=== PATIENT | female | born 1985 | race Caucasian/White ===

== ENCOUNTER → 2018-01-12 | Outpatient (CLI) | payer OTHER ==
--- NOTE | 2018-01-12 10:20 | MM ---
Reason for exam: clinical finding. Last mammogram was performed 8 years and 2 months ago. History: Took hormonal contraceptives beginning at age 21. Physical Findings: A clinical breast exam by your physician is recommended on an annual basis and results should be correlated with mammographic findings. MG Diagnostic Mammo w CAD ESHA Bilateral CC and MLO view(s) were taken. Spot compression CC view(s) were taken of the right breast. LM and spot compression MLO view(s) were taken of the left breast. Prior study comparison: November 11, 2009, mammogram, performed at [facility]. The breast tissue is heterogeneously dense. This may lower the sensitivity of mammography. Nodule upper outer quadrant left breast 7cm from nipple. Ultrasound is recommended. These results were verbally communicated with the patient and result sheet given to the patient on 01/12/18. ASSESSMENT: Incomplete: need additional imaging evaluation, BI-RAD 0 RECOMMENDATION: Ultrasound of the left breast.
--- NOTE | 2018-01-12 10:27 | USB ---
Reason for exam: additional evaluation requested from abnormal screening. History: Took hormonal contraceptives beginning at age 21. US Breast Limited LT Left breast ultrasound demonstrates no cystic or solid lesion seen. Given mammographic appearance, stereotactic core biopsy is recommended. These results were verbally communicated with the patient and result sheet given to the patient on 01/12/18. ASSESSMENT: Suspicious, BI-RAD 4 RECOMMENDATION: Stereotactic core biopsy of the left breast. Called Dr. Salinas with mammographic findings and has scheduled an appointment for the patient for 01/21/18 at 11:[address] Ortega. PRELIMINARY REPORT CALLED AND FAXED TO DR. ORTEGA ON 01/12/18.
== END | disposition home or self-care (01) ==
LOC: RADMAMWWP 08:39
PROVIDERS: ATTEND Obstetrics & Gynecology
DX: N63.0 Unspecified lump in unspecified breast (principal); R92.8 Other abnormal and inconclusive findings on diagnostic imaging of breast
CPT/HCPCS: 77066

== ENCOUNTER → 2018-02-04 | Day surgery (SDC) | payer OTHER ==
[2018-02-04 07:49] VITALS: BP 117/81; PULSE 85; RESP 16; TEMP 98.5; BMI 18.8
--- NOTE | 2018-02-04 10:32 | USB ---
Reason for exam: additional evaluation requested from prior study. History: Took hormonal contraceptives beginning at age 21. US Breast Limited LT Left breast ultrasound demonstrates no cystic or solid lesion seen. These results were verbally communicated with the patient and result sheet given to the patient on 02/04/18. ASSESSMENT: Negative, BI-RAD 1 RECOMMENDATION: Surgical consultation of the left breast. Dr. Ortega's office to call patient to schedule needle localization.
--- NOTE | 2018-02-04 15:56 | MM ---
EXAMINATION TYPE: MG discontinued stereo core LT DATE OF EXAM: 02/04/2018 COMPARISON: Prior diagnostic mammogram 01/12/2018 CLINICAL HISTORY: Abnormal mammogram TECHNIQUE: Stereotactic guided core biopsy of left breast, discontinued. FINDINGS: The patient was placed in the stereotactic breast biopsy table. Lesion could not be localiz ed. Attempts will be made to repeat ultrasound to localize lesion. Lesion is felt likely to be probab ly benign. IMPRESSION: Probably benign, BI-RADS 3, follow-up mammogram in 3-6 months to assess for stability. Alternatively surgical consult and wire localization and excision could be attempted. Case discussed with referring clinician.
== END ==
LOC: RADMAMWWP 07:37
PROVIDERS: ATTEND Surgery
DX: R92.8 Other abnormal and inconclusive findings on diagnostic imaging of breast (principal); Z53.8 Procedure and treatment not carried out for other reasons

== ENCOUNTER 2018-02-15 08:25 | Day surgery (SDC) | payer OTHER ==
[2018-02-09 12:24] VITALS: BMI 18.5
[~2018-02-15 08:25] MED LIST: DEXAMETHASONE SOD PHOSPHATE 10 MG/ML 1 ML VIAL IV ONE; HEPARIN SODIUM,PORCINE 5,000 UNIT/ML 1 ML VIAL SQ ONE; MIDAZOLAM 2 MG/2 ML VIAL IV PRN; ONDANSETRON 4 MG/2 ML VIAL IVP ONE; Pre Op ABX Message 1 EACH MISC MISCELLANE ONE; SCOPOLAMINE 1.5MG/72HR PATCH TRANSDERM ONE; fentaNYL (PF) 50 MCG/ML 2 ML AMP IV PRN
[2018-02-15] MEDS ORDERED: ALPRAZolam 0.5 MG TAB PO ONE (09:00)
[2018-02-15] MEDS: LACTATED RINGERS 1,000 ML IV SCH ×2 (09:02→11:55)
[2018-02-15] MEDS ORDERED: SODIUM BICARB 4% 5 ML VIAL (0.48 MEQ/ML) MISCELLANE ONE (10:07)
[2018-02-15] MEDS ORDERED: LIDOCAINE 1% INJ 10MG/ML (20 ML MDV) SQ ONE (10:07)
[2018-02-15] MEDS ORDERED: HEPARIN SODIUM,PORCINE 5,000 UNIT/ML 1 ML VIAL SQ ONE (11:38)
[2018-02-15] MEDS ORDERED: KETOROLAC 30 MG/ML 1 ML VIAL ONE (11:58)
[2018-02-15] MEDS ORDERED: fentaNYL (PF) 50 MCG/ML 2 ML AMP ONE (11:58)
[2018-02-15] MEDS ORDERED: MIDAZOLAM 2 MG/2 ML VIAL ONE (11:58)
[2018-02-15] MEDS ORDERED: LIDOCAINE 1% INJ 10MG/ML (20 ML MDV) ONE (11:58)
[2018-02-15] MEDS ORDERED: ALBUTEROL INHALER 60 PUFF/8 GM INHALER INHALATION ONE (11:58)
[2018-02-15] MEDS ORDERED: GLYCOPYRROLATE 0.2 MG/ML 2 ML VIAL ONE (11:58)
[2018-02-15] MEDS ORDERED: SUCCINYLCHOLINE CHLORIDE 100 MG/5 ML SYR IV ONE (11:58)
[2018-02-15] MEDS ORDERED: PROPOFOL 10 MG/ML 20 ML VIAL IV ONE (11:58)
--- NOTE | 2018-02-15 13:20 | P.OP ---
Date of Procedure: 02/15/18 Preoperative Diagnosis: Mammographic abnormality left breast, attempted stereotactic biopsy unsuccessful recommended for needle localization and excision Postoperative Diagnosis: Same Procedure(s) Performed: needle Localization excisional biopsy area of concern in left breast Anesthesia: CAMILLE Surgeon: Angelica Ortega Estimated Blood Loss (ml): 20 IV fluids (ml): 600 Pathology: other (Breast tissue) Condition: stable Disposition: PACU Indications for Procedure: Attempted stereotactic biopsy of area of concern in left breast unsuccessful, after review with radiology recommended needle localization and excisional biopsy Operative Findings: Area of nodularity/cystic change on chest wall Description of Procedure: Patient is a 32-year-old white female who had a abnormality noted on her mammogram and her left breast. Ultrasound did not reveal any lesions which could be biopsied. Attempted stereotactic biopsy was performed. This was unsuccessful and it was recommended after discussion with the patient that she undergo needle localization and excisional biopsy. The area of concern was localized by needle localization. The patient was brought to the operating room and following induction of anesthesia the left breast was prepped and draped in a sterile fashion. Circumareolar incision was made and carried down to the area of abnormality. Wide excision was performed. The specimen was painted for orientation and radiograph of the specimen revealed area of concern had been removed. Following this after we were assured that hemostasis was attained several deep 3-0 Vicryl sutures were placed. This was followed by closure of the skin with 4-0 Monocryl and a nylon suture superficial to this. The patient tolerated the procedure in stable condition. All instrument and sponge counts were correct at the end of the case.
--- NOTE | 2018-02-15 13:21 | P.DS ---
Providers Attending physician: Angelica Ortega Primary care physician: Stated None Plan - Discharge Summary New Discharge Prescriptions: No Action Albuterol Sulfate [Ventolin HFA] 1 - 2 puff INHALATION Q6H PRN #1 inhaler PRN Reason: Shortness Of Breath Ibuprofen [Motrin] 400 mg PO Q6HR PRN PRN Reason: Pain Discharge Medication List Albuterol Sulfate [Ventolin HFA] 1 - 2 puff INHALATION Q6H PRN #1 inhaler [Rx] Ibuprofen [Motrin] 400 mg PO Q6HR PRN 01/21/18 [History] Follow up Appointment(s)/Referral(s): Angelica Ortega MD [STAFF PHYSICIAN] - 1 Week Activity/Diet/Wound Care/Special Instructions: Do not drive today Were bra until seen by Dr. Fernandez Patient may shower after 48 hours Discharge Disposition: HOME SELF-CARE
[2018-02-15 13:34] VITALS: TEMP 96.8
--- NOTE | 2018-02-15 13:56 | MM ---
EXAMINATION TYPE: MG surgical specimen LT, MG pre op needle loc LT DATE OF EXAM: 02/15/2018 COMPARISON: NONE CLINICAL HISTORY: Left breast mammographic mass without sonographic correlate. Discontinued stereotactic biopsy due to nonvisualization TECHNIQUE: Needle localization with wire placement and surgical excision of area of concern in the left breast. FINDINGS: The procedure of needle localization with wire placement and than surgical excision was explained to the patient. Benefits, alternatives, and risks were discussed. An informed consent was then obtained. The shortest pathway for procedure was chosen. Shortest pathway was lateral medial approach. The overlying skin was prepped and draped in usual sterile fashion. 10 cc of lidocaine buffered with bicarbonate was used as anesthetic into the skin and subcutaneous tissue up to the 8mm upper outer quadrant mass within the left breast. A 5 cm needle was used. It was placed via a lateral to medial approach under mammographic guidance. Subsequent 90 degrees mammogram show the needle to be in satisfactory position relative to the targeted area. At this point, wire was placed and the needle was withdrawn. The wire was fixed to patient's skin. Images were marked for surgeon. The patient tolerated the procedure well without any immediate complication. The patient was kept in the radiology department for short stay after the procedure and then taken to surgery for surgical excision. Entirety of the Kopan 's needle was identified in specimen mammogram. The patient was kept in hospital for short stay after the procedure and then discharged home in stable condition. IMPRESSION: Successful, uncomplicated needle localization with wire placement and surgical excision of sonographically occult 8 mm upper outer quadrant mass within the left breast, full pathology results to follow. Pathology Results: Benign LEFT BREAST, NEEDLE LOCALIZATION EXCISION: PROLIFERATIVE FIBROCYSTIC CHANGES INCLUDING SCLEROSING ADENOSIS WITH CALCIFICATIONS, FIBROADENOMATOID HYPERPLASIA/ FIBROADENOMA FORMATION, FIBROSIS, CYSTS, APOCRINE METAPLASIA AND COLUMNAR CELL CHANGE. Recommendation Follow up mammogram of the left breast in 6 months. FESTUS
[2018-02-15 14:21] VITALS: RESP 16
[2018-02-15] MEDS ORDERED: Acetaminophen-Codeine 300-30mg TAB PO STA (14:22)
[2018-02-15 15:02] VITALS: BP 104/68; PULSE 56
== END 2018-02-15 15:38 | disposition home or self-care (01) ==
LOC: OR 08:25
PROVIDERS: ATTEND Surgery
DX: N60.22 Fibroadenosis of left breast (principal); D24.2 Benign neoplasm of left breast; N60.32 Fibrosclerosis of left breast; N60.82 Other benign mammary dysplasias of left breast; J45.909 Unspecified asthma, uncomplicated; R00.0 Tachycardia, unspecified; Z80.1 Family history of malignant neoplasm of trachea, bronchus and lung; Z80.0 Family history of malignant neoplasm of digestive organs; F17.210 Nicotine dependence, cigarettes, uncomplicated
CPT/HCPCS: 19125; 81025; 88307; 76098; 19281; J2250; J1644; J1100; J2405; J2001; J3010; J1885; J0330; J2704

== ENCOUNTER → 2018-04-07 | Outpatient (CLI) | payer OTHER ==
[2018-04-07 09:27] LABS: Basophils % (A) 1 %; Eosinophils # (A) 0.3 k/uL (0-0.7); Eosinophils % (A) 4 %; HCT 52.6 % (34.0-46.0); HGB 17.1 gm/dL (11.4-16.0); Lymphocytes # (A) 2.5 k/uL (1.0-4.8); Lymphocytes % (A) 31 %; MCH 29.3 pg (25.0-35.0); MCHC 32.6 g/dL (31.0-37.0); MCV 89.8 fL (80.0-100.0); Monocytes # (A) 0.3 k/uL (0-1.0); Monocytes % (A) 4 %; Neutrophils # (A) 4.8 k/uL (1.3-7.7); Neutrophils % (A) 59 %; Platelet Count 276 k/uL (150-450); RBC 5.86 m/uL (3.80-5.40); RDW 12.2 % (11.5-15.5); WBC 8.1 k/uL (3.8-10.6)
[2018-04-07 10:24] LABS: T4, Free (Free Thyroxine) 1.38 ng/dL (0.78-2.19)
[2018-04-07 17:17] LABS: Progesterone 0.7 ng/mL; Thyroid Peroxidase Antibodies <28.0 U/mL (0.0-60.0)
== END | disposition home or self-care (01) ==
LOC: LABWHC1 09:09
PROVIDERS: ATTEND Midwife
DX: R53.83 Other fatigue (principal); N95.1 Menopausal and female climacteric states
CPT/HCPCS: 36415; 82670; 83001; 83002; 84144; 84439; 84443; 84481; 85025; 86376; 86800

== ENCOUNTER → 2018-06-20 | Outpatient (CLI) | payer OTHER ==
--- NOTE | 2018-06-20 13:59 | EST ---
EXERCISE STRESS DATE OF SERVICE: June 20, 2018. INDICATION: Chest discomfort. AGE: 33 SEX: F HT: 5 feet 7 inches WT: 115 PROTOCOL: Bari STAGE: III DURATION OF EXERCISE: 9:00 HEART RATE REST: 86 BLOOD PRESSURE REST: 112/72 MAXIMUM HEART RATE ACHIEVED: 158 MAXIMUM BLOOD PRESSURE: 136/64 85% MPHR: 157 100% MPHR: 185 METS: 10.5 CLINICAL INFORMATION: STRESS DATA: Pretesting physical examination showed a heart rate of 86, pressure is 112/72 mmHg. Baseline EKG showed sinus mechanism. The patient exercised on the treadmill according to Bari protocol for a total of 9 minutes and achieved 10.5 METS. Max heart rate was 158, which is about 85% of maximum predicted heart rate. Maximum blood pressure was 136/64 mmHg. Clinically, the patient did not have any symptoms of chest pain or discomfort during the testing or on recovery and the EKG did not show any significant ST or T-wave abnormalities concerning for ischemia. CONCLUSION: 1. Excellent exercise. 2. Essentially normal EKG in response to exercise. 3. Essentially normal stress test for the patient. MMODL / IJN: [id number] /
== END ==
LOC: RADNMMAIN 11:25
PROVIDERS: ATTEND Family Medicine
DX: R00.2 Palpitations (principal)
CPT/HCPCS: 93017; 93270; 93271

== ENCOUNTER → 2019-09-01 | Outpatient (CLI) | payer OTHER ==
[2019-09-01 17:22] LABS: Basophils # (A) 0.1 k/uL (0-0.2); Basophils % (A) 1 %; Eosinophils # (A) 0.3 k/uL (0-0.7); Eosinophils % (A) 3 %; HCT 48.2 % (34.0-46.0); HGB 15.4 gm/dL (11.4-16.0); Lymphocytes # (A) 3.1 k/uL (1.0-4.8); Lymphocytes % (A) 36 %; MCV 93.8 fL (80.0-100.0); Mean Platelet Volume 7.2; Monocytes # (A) 0.3 k/uL (0-1.0); Monocytes % (A) 4 %; Neutrophils # (A) 4.7 k/uL (1.3-7.7); Neutrophils % (A) 55 %; Platelet Count 222 k/uL (150-450); Prothrombin Time 10.6 sec (9.0-12.0); RBC 5.14 m/uL (3.80-5.40); RDW 12.1 % (11.5-15.5); WBC 8.6 k/uL (3.8-10.6)
[2019-09-02 01:13] LABS: African American GFR (CKD) 109.9 (60.0-200.0); Anion Gap 5.7 mmol/L (4.00-12.00); BUN/Creat Ratio 18.75 Ratio (12.00-20.00); Calcium 8.9 mg/dL (8.7-10.3); Carbon Dioxide 26.3 mmol/L (21.6-31.8); Potassium 4.5 mmol/L (3.5-5.5)
== END | disposition home or self-care (01) ==
LOC: LABWHC1 15:56
PROVIDERS: ATTEND Internal Medicine
DX: R00.2 Palpitations (principal); I47.2 Ventricular tachycardia
CPT/HCPCS: 36415; 80048; 85025; 85610

== ENCOUNTER 2023-08-23 19:06 | Emergency (ER) | payer OTHER ==
[2023-08-23] MEDS ORDERED: LIDOCAINE 1% INJ 10MG/ML (20 ML MDV) SQ ONE (19:30)
--- NOTE | 2023-08-23 19:31 | ED ---
General Adult HPI - General Source: patient, RN notes reviewed Mode of arrival: ambulatory Limitations: no limitations <Alex Gibson - Last Filed: 08/23/23 19:30> <Jacqueline Amador - Last Filed: 08/23/23 23:08> - General Stated complaint: left thumb laceration Time Seen by Provider: 08/23/23 19:30 - History of Present Illness Initial comments: 38-year-old female presents emergency Department chief complaint left arm laceration. Patient states she cut it with a knife she is [id number] her tetanus is up-to-date. (Alex Gibson) 38-year-old female presents to the emergency department chief complaint of left thumb laceration. She states that she was cutting vegetables for dinner when the knife slipped and cut the medial aspect of her left thumb. She reports normal sensation and movement in her thumb. She states that she is unsure if her tetanus vaccination is greater than 5 years old. (Jacqueline Amador) - Related Data Home Medications Medication Instructions Recorded Confirmed Ibuprofen [Motrin] 400 mg PO Q6HR PRN 01/21/18 02/09/18 Previous Rx's Medication Instructions Recorded Albuterol Sulfate [Ventolin HFA] 1 - 2 puff INHALATION Q6H PRN #1 08/28/14 inhaler Cephalexin [Keflex] 500 mg PO Q6HR #28 cap 08/23/23 Allergies Allergy/AdvReac Type Severity Reaction Status Date / Time No Known Allergies Allergy Verified 02/09/18 12:18 Review of Systems ROS Other: All systems not noted in ROS Statement are negative. <Alex Gibson - Last Filed: 08/23/23 19:30> ROS Other: All systems not noted in ROS Statement are negative. <Jacqueline Amador - Last Filed: 08/23/23 23:08> ROS Statement: Those systems with pertinent positive or pertinent negative responses have been documented in the HPI. 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 History of Any Multi-Drug Resistant Organisms: None Reported Past Surgical History: No Surgical Hx Reported Additional Past Surgical History / Comment(s): oral, wisdom teeth surgery Additional Past Anesthesia/Blood Transfusion Reaction / Comment(s): wakes up dur ing surgery Past Psychological History: Anxiety Past Alcohol Use History: Rare Additional Past Alcohol Use History / Comment(s): smokes 1/2 ppd since age 8 Past Drug Use History: None Reported - Past Family History Mother Family Medical History: No Reported History <Alex Gibson - Last Filed: 08/23/23 19:30> General Exam <Alex Gibson - Last Filed: 08/23/23 19:30> Limitations: no limitations General appearance: alert, in no apparent distress <Jacqueline Amador - Last Filed: 08/23/23 23:08> - General Exam Comments Initial Comments: Visual Physical Exam Vital signs reviewed General: Well-appearing, nontoxic, no acute distress. Head: Normocephalic, atraumatic Eyes: PERRLA, EOMI ENT: Airway patent Chest: Nonlabored breathing Skin: No visual rash, normal skin tone Neuro: Alert and oriented 3 Musculoskeletal: No gross abnormalities (Alex Gibson) Course Vital Signs 08/23/23 08/23/23 19:42 21:30 Temperature 98.3 F Pulse Rate 94 73 Respiratory 18 16 Rate Blood Pressure 113/80 95/68 O2 Sat by Pulse 98 98 Oximetry Procedures - Laceration Laceration #1 Consent Obtained: verbal consent Indication: laceration Site: hand Size (cm): 1 Description: flap Depth: simple, single layer Anesthetic Used: lidocaine 1% Anesthesia Technique: nerve block Pre-repair: wound explored, irrigated extensively Type of Sutures: other Size of Sutures: 5-0 Number of Sutures: 6 Technique: simple, interrupted Patient Tolerated Procedure: well, no complications <Jacqueline Amador - Last Filed: 08/23/23 23:08> Medical Decision Making <Alex Gibson - Last Filed: 08/23/23 19:30> <Jacqueline Amador - Last Filed: 08/23/23 23:08> - Medical Decision Making I performed a quick note portion of the signed Alex Gibson PA-C (Alex Gibson) Was pt. sent in by a medical professional or institution ([facility], ENVIRONMENTAL COMPLIANCE ENGINEER, urgent care, hospital, or [facility]...) When possible be specific @ -No Did you speak to anyone other than the patient for history (EMS, parent, family, police, friend...)? What history was obtained from this source @ -No Did you review nursing and triage notes (agree or disagree)? Why? @ -I reviewed and agree with nursing and triage notes Were old charts reviewed (outside hosp., previous admission, EMS record, old EKG, old radiological studies, urgent care reports/EKG's, [facility] records)? Report findings @ -No old charts were reviewed Differential Diagnosis (chest pain, altered mental status, abdominal pain women, abdominal pain men, vaginal bleeding, weakness, fever, dyspnea, syncope, headache, dizziness, GI bleed, back pain, seizure, CVA, palpatations, mental health, musculoskeletal)? @ -Differential Musculoskeletal Muscular strain, contusion, ligament sprain, fracture, arthritis, septic arthritis, bursitis, cellulitis, muscle spasm, nerve compression, DVT, arterial occlusion, herpes zoster, electrolyte abnormality, tumor.... This is not meant to be in all inclusive list EKG interpreted by me (3pts min.). @ -none X-rays interpreted by me (1pt min.). @ -None done CT interpreted by me (1pt min.). @ -None done U/S interpreted by me (1pt. min.). @ -None done What testing was considered but not performed or refused? (CT, X-rays, U/S, labs)? Why? @ -None What meds were considered but not given or refused? Why? @ -None Did you discuss the management of the patient with other professionals (professionals i.e. , PA, ENVIRONMENTAL COMPLIANCE ENGINEER, lab, RT, psych nurse, manager social, it quality assurance analyst, teacher, customs officer, rehabilitation caseworker)? Give summary @ -No Was smoking cessation discussed for >3mins.? @ -No Was critical care preformed (if so, how long)? @ -No Were there social determinants of health that impacted care today? How? (Homelessness, low income, unemployed, alcoholism, drug addiction, transportation, low edu. Level, literacy, decrease access to med. care, senior care, rehab)? @ -No Was there de-escalation of care discussed even if they declined (Discuss DNR or withdrawal of care, Hospice)? DNR status @ -No What co-morbidities impacted this encounter? (DM, HTN, Smoking, COPD, CAD, Cancer, CVA, ARF, Chemo, Hep., AIDS, mental health diagnosis, sleep apnea, morbid obesity)? @ -None Was patient admitted / discharged? Hospital course, mention meds given and route, prescriptions, significant lab abnormalities, going to OR and other pertinent info. @ -Discharged. Patient presented to emergency complaining of laceration to her left thumb from a knife injury in that she was cutting vegetables for dinner. She states that knife slipped and cut her medial aspect of her left thumb. Patient has appropriate range of motion and normal sensation, cap refill less than 2 seconds, radial pulses 2+. Laceration was extensively irrigated and repaired. Tetanus vaccination updated Patient started on prophylactic antibiotics. She'll follow up with her primary care provider for suture removal. Patient stable at time of discharge. Case discussed my attending, Dr. Ordaz Undiagnosed new problem with uncertain prognosis? @ -No Drug Therapy requiring intensive monitoring for toxicity (Heparin, Nitro, Insulin, Cardizem)? @ -No Were any procedures done? @ -Laceration repair Diagnosis/symptom? @ -Laceration Acute, or Chronic, or Acute on Chronic? @ -Acute Uncomplicated (without systemic symptoms) or Complicated (systemic symptoms)? @ -Uncomplicated Side effects of treatment? @ -No Exacerbation, Progression, or Severe Exacerbation? @ -No Poses a threat to life or bodily function? How? (Chest pain, [place], DC, pneumonia, PE, COPD, DKA, ARF, appy, cholecystitis, CVA, Diverticulitis, Homicidal, Suicidal, threat to staff... and all critical care pts) @ -No (Jacqueline Amador) Disposition <Alex Gibson - Last Filed: 08/23/23 19:30> Is patient prescribed a controlled substance at d/c from ED?: No <Jacqueline Amador - Last Filed: 08/23/23 23:08> Clinical Impression: Laceration Disposition: HOME SELF-CARE Condition: Stable Instructions (If sedation given, give patient instructions): Care For Your Stitches (ED) Additional Instructions: Please have stitches removed in around 7 days. Return to the emergency department for new or worsening symptoms. Prescriptions: Cephalexin [Keflex] 500 mg PO Q6HR #28 cap Referrals: None,Stated [Primary Care Provider] - 1-2 days
[2023-08-23 19:46] VITALS: TEMP 98.3
[2023-08-23] MEDS ORDERED: DIPH,PERTUS(ACELL)TETVAC-LF 0.5 ML VIAL IM ONE (21:12)
[2023-08-23 21:34] VITALS: BP 95/68; PULSE 73; RESP 16
== END 2023-08-23 21:30 | disposition home or self-care (01) ==
LOC: EC 19:06
DX: S41.112A Laceration without foreign body of left upper arm, initial encounter (principal); J45.909 Unspecified asthma, uncomplicated; Z86.59 Personal history of other mental and behavioral disorders; Z23 Encounter for immunization; W26.0XXA Contact with knife, initial encounter
CPT/HCPCS: 90715; 99282; 90471; 12001; J2001

== ENCOUNTER 2024-05-04 20:11 | Emergency (ER) | payer OTHER ==
[2024-05-04 20:15] VITALS: TEMP 98.7
--- NOTE | 2024-05-04 20:57 | ED ---
Psych HPI - General Chief Complaint: Psychiatric Symptoms Stated Complaint: Petition Time Seen by Provider: 05/04/24 20:56 Source: patient, police, RN notes reviewed Mode of arrival: ambulatory - History of Present Illness Initial Comments: 39-year-old female presented to the ER via police petition for mental health evaluation. Patient states she has been in relationship with her current boyfriend for approximately 5 months and they frequently have fights. She states her and her boyfriend got into a fight tonight and he broke up with her. She states she went home to her 16-year-old daughter and told her she just wanted to be alone. Patient went to her car to listen to "loud music and chain smoke cigarettes" but her daughter followed her. Patient reports daughter went in the house and called 911 as she was concerned patient was suicidal as daughter reports patient "could not wait to see God" and "did not want to be alive". Patient denies any current SI or HI. Patient does admit to smoking marijuana. She denies any other drug or alcohol use today. Denies any chest pain, shortness of breath, fever, cough, congestion, headache, abdominal pain, urinary complaints or peripheral edema. - Related Data Home Medications Medication Instructions Recorded Confirmed No Known Home Medications 05/04/24 05/04/24 Allergies Allergy/AdvReac Type Severity Reaction Status Date / Time No Known Allergies Allergy Verified 05/04/24 20:59 Review of Systems ROS Statement: Those systems with pertinent positive or pertinent negative responses have been documented in the HPI. ROS Other: All systems not noted in ROS Statement are negative. 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 History of Any Multi-Drug Resistant Organisms: None Reported Past Surgical History: No Surgical Hx Reported Additional Past Surgical History / Comment(s): oral, wisdom teeth surgery Additional Past Anesthesia/Blood Transfusion Reaction / Comment(s): wakes up during surgery Past Psychological History: Anxiety, Depression Smoking Status: Current every day smoker Past Alcohol Use History: Rare Past Drug Use History: Marijuana - Past Family History Mother Family Medical History: No Reported History General Exam Limitations: no limitations General appearance: alert, in no apparent distress Respiratory exam: Present: normal lung sounds bilaterally. Absent: respiratory distress, wheezes, rales, rhonchi, stridor Cardiovascular Exam: Present: regular rate, normal rhythm, normal heart sounds. Absent: systolic murmur, diastolic murmur, rubs, gallop, clicks GI/Abdominal exam: Present: soft, normal bowel sounds. Absent: distended, tenderness, guarding, rebound, rigid Psychiatric exam: Present: anxious Skin exam: Present: warm, dry, intact, normal color. Absent: rash Course Vital Signs 05/04/24 05/04/24 20:13 22:58 Temperature 98.7 F Pulse Rate 110 H 79 Respiratory 20 18 Rate Blood Pressure 143/85 132/77 O2 Sat by Pulse 97 98 Oximetry - Reevaluation(s) Reevaluation #1: 05/04/24 23:10 Case discussed with NUBIA Duvall, who reports patient is stable for discharge with a safety plan. Medical Decision Making - Medical Decision Making Was pt. sent in by a medical professional or institution ([facility], SHOVEL ENGINEER, urgent care, hospital, or senior living...) When possible be specific @ -No Did you speak to anyone other than the patient for history (EMS, parent, family, police, friend...)? What history was obtained from this source @ -No Did you review nursing and triage notes (agree or disagree)? Why? @ -I reviewed and agree with nursing and triage notes Were old charts reviewed (outside hosp., previous admission, EMS record, old EKG, old radiological studies, urgent care reports/EKG's, senior living records)? Report findings @ -No old charts were reviewed Differential Diagnosis (chest pain, altered mental status, abdominal pain women, abdominal pain men, vaginal bleeding, weakness, fever, dyspnea, syncope, headache, dizziness, GI bleed, back pain, seizure, CVA, palpatations, mental health, musculoskeletal)? @ -Differential Mental Health: Depression, anxiety, bipolar, psychosis, schizophrenia, borderline personality, situational depression, adjustment disorder, behavioral disorder, brain tumor, malingering, substance abuse, encephalopathy, medication reaction, dementia, hypothyroidism, degenerative neurologic disorder, lupus.... This is not meant to be all-inclusive list EKG interpreted by me (3pts min.). @ -None X-rays interpreted by me (1pt min.). @ -None done CT interpreted by me (1pt min.). @ -None done U/S interpreted by me (1pt. min.). @ -None done What testing was considered but not performed or refused? (CT, X-rays, U/S, labs)? Why? @ -None What meds were considered but not given or refused? Why? @ -None Did you discuss the management of the patient with other professionals (professionals i.e. , PA, SHOVEL ENGINEER, lab, RT, psych nurse, dialysis social worker, chain hoist operator, teacher, court officer, case mgr)? Give summary @ -Yes, case discussed with NUBIA Duvall, who advises on discharge with safety plan. Was smoking cessation discussed for >3mins.? @ -No Was critical care preformed (if so, how long)? @ -No Were there social determinants of health that impacted care today? How? (Homelessness, low income, unemployed, alcoholism, drug addiction, transp ortation, low edu. Level, literacy, decrease access to med. care, intermediate, rehab)? @ -No Was there de-escalation of care discussed even if they declined (Discuss DNR or withdrawal of care, Hospice)? DNR status @ -No What co-morbidities impacted this encounter? (DM, HTN, Smoking, COPD, CAD, Cancer, CVA, ARF, Chemo, Hep., AIDS, mental health diagnosis, sleep apnea, morbid obesity)? @ -Mental health Was patient admitted / discharged? Hospital course, mention meds given and route, prescriptions, significant lab abnormalities, going to OR and other pertinent info. @ -Discharge. 39-year-old female presented to the ER petition for mental health evaluation by police. History and physical exam completed. Vitals stable. Patient in no signs of acute distress and nontoxic-appearing. Patient cleared for EPS evaluation. Case discussed with NUBIA Duvall, who advises on safety plan and discharge. Patient discharged in stable condition with community resources. Return parameters discussed. Verbal expressed understanding and agreement with care plan. Case discussed with ED attending, Dr. Kingsley. Undiagnosed new problem with uncertain prognosis? @ -No Drug Therapy requiring intensive monitoring for toxicity (Heparin, Nitro, Insulin, Cardizem)? @ -No Were any procedures done? @ -No Diagnosis/symptom? @ -Depression/anxiety Acute, or Chronic, or Acute on Chronic? @ -Acute Uncomplicated (without systemic symptoms) or Complicated (systemic symptoms)? @ -Uncomplicated Side effects of treatment? @ -No Exacerbation, Progression, or Severe Exacerbation? @ -No Poses a threat to life or bodily function? How? (Chest pain, [place], [place], pneumonia, PE, COPD, DKA, ARF, appy, cholecystitis, CVA, Diverticulitis, Homicidal, Suicidal, threat to staff... and all critical care pts) @ -No - Lab Data Lab Results 05/04/24 Range/Units 20:53 Urine Opiates Screen Not Detected (NotDetected) Ur Oxycodone Screen Not Detected (NotDetected) Urine Methadone Screen Not Detected (NotDetected) Ur Barbiturates Screen Not Detected (NotDetected) U Tricyclic Antidepress Not Detected (NotDetected) Ur Phencyclidine Scrn Not Detected (NotDetected) Ur Amphetamines Screen Not Detected (NotDetected) U Methamphetamines Scrn Not Detected (NotDetected) U Benzodiazepines Scrn Not Detected (NotDetected) Urine Cocaine Screen Not Detected (NotDetected) U Marijuana (THC) Screen Detected H (NotDetected) Disposition Clinical Impression: Depression, Acute anxiety Disposition: HOME SELF-CARE Condition: Stable Instructions (If sedation given, give patient instructions): Depression (ED), Anxiety (ED) Additional Instructions: Please follow-up with PCP in the next 1 to 2 days. Return to the ER for any new or worsening concerns. Is patient prescribed a controlled substance at d/c from ED?: No Referrals: None,Stated [Primary Care Provider] - 1-2 days Forms: Area PCPs, Who Do I Call?, Community Resources, Outpatient Counseling, Outpatient Therapy List Time of Disposition: 22:39
[2024-05-04 21:33] LABS: Amphetamine Screen,Urine Not Detected (NotDetected); Barbiturate Screen,Urine Not Detected (NotDetected); Benzodiazepines Screen,Urine Not Detected (NotDetected); Cocaine Screen,Urine Not Detected (NotDetected); Methadone Screen, Urine Not Detected (NotDetected); Opiate Screen,Urine Not Detected (NotDetected); Oxycodone Screen, Urine Not Detected (NotDetected); Phencyclidine Screen,Urine Not Detected (NotDetected); Tricyclic Antidepressant,Urine Not Detected (NotDetected); Urn Cannabinoid Scrn Detected (NotDetected)
[2024-05-04 23:02] VITALS: BP 132/77; PULSE 79; RESP 18
== END 2024-05-04 22:59 | disposition home or self-care (01) ==
LOC: EC 20:11
DX: F32.A Depression, unspecified (principal); F41.9 Anxiety disorder, unspecified; F17.210 Nicotine dependence, cigarettes, uncomplicated
CPT/HCPCS: 80306; 82075; 99285

== ENCOUNTER 2024-11-19 02:32 | Emergency (ER) | payer OTHER ==
--- NOTE | 2024-11-19 03:32 | ED ---
General Adult HPI - General Chief complaint: Urogenital Stated complaint: blood in urine Time Seen by Provider: 11/19/24 02:46 Source: patient Mode of arrival: ambulatory Limitations: no limitations - History of Present Illness Initial comments: Dictation was produced using [employer] dictation software. please excuse any grammatical, word or spelling errors. Chief Complaint: 39-year-old female with several hours of dysuria and hematuria History of Present Illness: Patient is a 39-year-old female denies any significant comorbidities. Patient states that for the last several hours she has been having urinary urgency frequency and dysuria. Patient has had an uptick of UTIs in the recent past. Denies any fever, chills or night sweats. Denies any drug allergies. Denies any history of kidney stones. Denies any flank pain. She does complain of some lower back pain The ROS documented in this emergency department record has been reviewed and confirmed by me. Those systems with pertinent positive or negative responses have been documented in the HPI. All other systems are other negative and/or noncontributory. - Related Data Previous Rx's Medication Instructions Recorded Cephalexin [Keflex] 500 mg PO Q6HR 5 Days #20 cap 11/19/24 Allergies Allergy/AdvReac Type Severity Reaction Status Date / Time No Known Allergies Allergy Verified 11/19/24 02:36 Review of Systems ROS Statement: Those systems with pertinent positive or pertinent negative responses have been documented in the HPI. ROS Other: All systems not noted in ROS Statement are negative. 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 History of Any Multi-Drug Resistant Organisms: None Reported Past Surgical History: No Surgical Hx Reported Additional Past Surgical History / Comment(s): oral, wisdom teeth surgery Additional Past Anesthesia/Blood Transfusion Reaction / Comment(s): wakes up during surgery Past Psychological History: Anxiety, Depression Smoking Status: Current every day smoker Past Alcohol Use History: Rare Past Drug Use History: Marijuana - Past Family History Mother Family Medical History: No Reported History General Exam - General Exam Comments Initial Comments: PHYSICAL EXAM: General Impression: Alert and oriented x3, not in acute distress HEENT: Normocephalic atraumatic, extra-ocular movements intact, pupils equal and reactive to light bilaterally, mucous membranes moist. Cardiovascular: Heart regular rate and rhythm Chest: Able to complete full sentences, no retractions, no tachypnea Abdomen: abdomen soft, positive suprapubic palpatory tenderness, non-distended, no organomegaly Musculoskeletal: Pulses present and equal in all extremities, no peripheral edema Motor: no focal deficits noted Neurological: CN II-XII grossly intact, no focal motor or sensory deficits noted Skin: Intact with no visualized rashes Psych: Normal affect and mood Limitations: no limitations Course Vital Signs 11/19/24 02:33 Temperature 97.5 F L Pulse Rate 100 Respiratory 18 Rate Blood Pressure 105/51 O2 Sat by Pulse 98 Oximetry Medical Decision Making - Medical Decision Making Was pt. sent in by a medical professional or institution (, PA, A AND P TECHNICIAN, urgent care, hospital, or snf...) When possible be specific @ -No Did you speak to anyone other than the patient for history (EMS, parent, family, police, friend...)? What history was obtained from this source @ -No Did you review nursing and triage notes (agree or disagree)? Why? @ -I reviewed and agree with nursing and triage notes Were old charts reviewed (outside hosp., previous admission, EMS record, old EKG, old radiological studies, urgent care reports/EKG's, snf records)? Report findings @ -No old charts were reviewed Differential Diagnosis (chest pain, altered mental status, abdominal pain women, abdominal pain men, vaginal bleeding, musculoskeletal, weakness, fever, dyspnea, syncope, headache, dizziness, GI bleed, back pain, seizure, CVA, palpatations, mental health)? @ -Differential Abdominal Pain Women: Appendicitis, Cholecystitis, diverticulosis, ischemic bowel, pancreatitis, hepatitis, UTI, gastroenteritis, AAA, incarcerated hernia, bowel obstruction, constipation, inflammatory bowel, hepatitis, peptic ulcer disease, splenic infarction, perforated viscus, vulvitis, ovarian torsion, PID, kidney stone, placenta abruption, this is not meant to be an all-inclusive list EKG interpreted by me (3pts min.). @ -None done X-rays interpreted by me (1pt min.). @ -None done CT interpreted by me (1pt min.). @ -None done U/S interpreted by me (1pt. min.). @ -None done What testing was considered but not performed or refused? (CT, X-rays, U/S, labs)? Why? @ -None What meds were considered but not given or refused? Why? @ -None Was smoking cessation discussed for >3mins.? @ -No Were there social determinants of health that impacted care today? How? (Homelessness, low income, unemployed, alcoholism, drug addiction, transportation, low edu. Level, literacy, decrease access to med. care, prison, rehab)? @ -No Was there de-escalation of care discussed even if they declined (Discuss DNR or withdrawal of care, Hospice)? DNR status @ -No What co-morbidities impacted this encounter? (DM, HTN, Smoking, COPD, CAD, Cancer, CVA, ARF, Chemo, Hep., AIDS, mental health diagnosis, sleep apnea, morbid obesity)? @ -None Was patient admitted / discharged? Hospital course, mention meds given and route, prescriptions, significant lab abnormalities, going to OR and other pertinent info. @ -39-year-old female presents with urinary symptoms. Vital signs upon arrival are within acceptable limits. Patient no acute distress at the bedside. Laboratory evaluation shows findings consistent with urinary tract infection. Patient given IM ceftriaxone prescription for antibiotics. Patient discharged advised follow-up with primary care doctor. Did you discuss the management of the patient with other professionals (professionals i.e. , PA, A AND P TECHNICIAN, lab, RT, psych nurse, social science manager, demand manager, teacher, contact officer, community case manager)? Give summary @ -No Was critical care preformed (if so, how long)? @ -No Undiagnosed new problem with uncertain prognosis? @ -No Drug Therapy requiring intensive monitoring for toxicity (Heparin, Nitro, Insulin, Cardizem)? @ -No Were any procedures done? @ -No Diagnosis/symptom? Acute, or Chronic, or Acute on Chronic? Uncomplicated (without systemic symptoms) or Complicated (systemic symptoms)? @ -Hemorrhagic cystitis Side effects of treatment? @ -No Exacerbation, Progression, or Severe Exacerbation? @ -No Poses a threat to life or bodily function? How? (Chest pain, [place], [place], pneumonia, PE, COPD, DKA, ARF, appy, cholecystitis, CVA, Diverticulitis, Homicidal, Suicidal, threat to staff... and all critical care pts) @ -yes - Lab Data Lab Results 11/19/24 Range/Units 02:42 Urine Color Dark [place] Urine Appearance Slightly Cloudy H (Clear) Urine RBC >182 H (0-5) /hpf Urine WBC >182 H (0-5) /hpf Urine WBC Clumps Moderate H (None) /hpf Ur Squamous Epith Cells 5 H (0-4) /hpf Urine Bacteria Few H (None) /hpf Urine Mucus Rare H (None) /hpf Disposition Clinical Impression: Urinary tract infection Disposition: HOME SELF-CARE Condition: Fair Instructions (If sedation given, give patient instructions): Urinary Tract Infection in Women (ED) Prescriptions: Cephalexin [Keflex] 500 mg PO Q6HR 5 Days #20 cap Is patient prescribed a controlled substance at d/c from ED?: No Referrals: Marcelo Burrell III, MD [STAFF PHYSICIAN] - 1-2 days Time of Disposition: 05:14
[2024-11-19 04:07] LABS: Bacteria,Urine Few /hpf; Mucus,Urine Rare /hpf; RBC,Urine >182 /hpf (0-5); Squamous Epithelial Cell,Urine 5 /hpf (0-4); WBC,Urine >182 /hpf (0-5)
[2024-11-19 04:09] LABS: Appearance,Urine Slightly Cloudy (Clear); Color,Urine Dark Orange
[2024-11-19] MEDS: cefTRIAXone 1,000 MG VIAL (IM USE) IM STA (04:26)
[2024-11-19] MEDS: MORPHINE SULFATE 4 MG/ML SYRINGE IM STA (04:26)
[2024-11-19 05:24] VITALS: BP 109/71; PULSE 97; RESP 17; TEMP 97.7
== END 2024-11-19 05:23 | disposition home or self-care (01) ==
LOC: EC 02:32
DX: N39.0 Urinary tract infection, site not specified (principal); F17.200 Nicotine dependence, unspecified, uncomplicated
CPT/HCPCS: 99283; 96372; 81001; J2270; J0696